=== PATIENT | female | born 1995 | race Hispanic/Latino ===

== ENCOUNTER 2017-10-10 23:29 | Emergency (ER) | payer BC, MEDICAID ==
[2017-10-11] MEDS ORDERED: CEFAZOLIN SODIUM 1 GM VIAL ONE (01:44)
[2017-10-11] MEDS ORDERED: SULFAMETHOX-TMP DS 800/160 TAB ONE (01:44)
== END 2017-10-11 03:27 | disposition home or self-care (01) ==
LOC: EDH 23:29
DX: S81.041A Puncture wound with foreign body, right knee, initial encounter (principal); L03.115 Cellulitis of right lower limb; W34.010A Accidental discharge of airgun, initial encounter; Y93.89 Activity, other specified; Y92.89 Other specified places as the place of occurrence of the external cause; Y99.8 Other external cause status
CPT/HCPCS: 73562; 96372; 99284; A4218; J0690